=== PATIENT | male | born 1970 | race Caucasian/White ===

== ENCOUNTER 2017-03-26 17:05 | Emergency (ER) | payer OTHER | END 2017-03-26 18:05 | disposition home or self-care (01) | LOC: FER 17:05 | DX: S90.861A Insect bite (nonvenomous), right foot, initial encounter (principal); F17.210 Nicotine dependence, cigarettes, uncomplicated; W57.XXXA Bitten or stung by nonvenomous insect and other nonvenomous arthropods, initial encounter; Y92.69 Other specified industrial and construction area as the place of occurrence of the external cause; Y99.0 Civilian activity done for income or pay | CPT/HCPCS: 86617; 99283 ==